=== PATIENT | male | born 1955 | race Caucasian/White ===

== ENCOUNTER 2022-09-20 08:26 | Emergency (ER) | payer BC, SELFPAY ==
[2022-09-20 08:28] VITALS: BP 151/95; PULSE 91; RESP 23; TEMP 36.9; O2SAT 100; BMI 32.5
--- NOTE | 2022-09-20 08:55 | ED.VIS.CHEST ---
HPI History of Present Illness Chief Complaint: Chest Pain Informant: patient Onset/Context/Timing Onset: Today Activity at onset: gradual Timing: Intermittent and Lasts (Approximately 5 to 10 minutes) Quality: Positive for Tightness Location: Substernal, Right Parasternal and Left Parasternal Worsened By: Nothing Relieved By: Nothing Associated Symptoms: Positive for Diaphoresis, Cough and Lightheadedness; Negative for Nausea, Vomiting, Dyspnea, Fever, Acid Reflux or Palpitations Narrative Narrative: Patient presents with chest pain that began today. Patient states it came on gradually this morning. Patient states it last for proxy 5 to 10 minutes. Patient describes it as a tightness. Patient states it is over the substernal and bilateral parasternal areas. Patient admits to some radiation into his neck. Patient states nothing makes it better nothing makes it worse. Patient states he did break out into a sweat when it began. Patient states he also felt lightheaded and weak in his legs. Patient states he has had a recent cough. Patient denies any sputum production. Patient denies any shortness of breath or fevers. Patient denies any nausea or vomiting. Patient denies any palpitations. Patient denies any cardiac or PE risk factors. CVD Risk Factors: Negative for Hypertension, Diabetes, Hypercholesterolemia, Family History 1' </=55 or Smoking PE Risk Factors: Negative for Recent Travel/Surgery, Recent Immobilization, Prior DVT or PE, Cancer or OCP + Smoking + >/=35 PFSH PFSH Medical History (Updated 09/20/22 @ 13:[address] Gregg Sultana DO) Psoriasis Medical History no medical history Allergy/AdvReac Type Severity Reaction Status Date / Time Penicillins [PCN] Allergy Rash Verified 09/20/22 08:27 Surgical History (Updated 09/20/22 @ 09:[address] Gregg Sultana DO) History of total replacement of right hip Social History (Updated 09/20/22 @ 09:[address] Gregg Sultana DO) Smoking Status: Never smoker alcohol intake: current alcohol intake frequency: 0-2 drinks per day Alcohol type: beer substance use type: does not use ROS ROS ED Constitutional Constitutional ED: Reports sweats; Denies chills or fever(s) Eyes Eyes: Denies blurry vision or change in vision ENT ENT ED: Denies rhinorrhea or sore throat Cardiovascular Cardiovascular: Reports chest pain; Denies palpitations Respiratory/Chest Respiratory/Chest: Reports cough; Denies dyspnea Gastrointestinal Gastrointestinal: Denies abdominal pain, nausea or vomiting Genitourinary Genitourinary ED: Denies dysuria or hematuria Musculoskeletal Musculoskeletal: Reports neck pain; Denies back pain Integumentary Reports rash; Denies abscess Neurologic Neurologic: Denies headache(s) or weakness Allergic/Immunologic Allergic/Immunologic ED: Denies mouth swelling or urticaria EXAM Physical Exam Const Vital Signs: 09/20/22 08:28 09/20/22 09:08 09/20/22 10:20 Temperature 98.4 F Temperature Source Oral Pulse Rate 91 Respiratory Rate 23 H Blood Pressure 151/95 H 160/93 H Blood Pressure Mean 113 115 Pulse Ox 100 97 Oxygen Delivery Method Room Air Room Air Room Air 09/20/22 12:44 Temperature Temperature Source Pulse Rate Respiratory Rate Blood Pressure 131/76 H Blood Pressure Mean 94 Pulse Ox Oxygen Delivery Method Positive well nourished, well developed and obese General Appearance ED: well developed and NAD Nutritional Appearance: obese HEENT normocephalic and atraumatic Eyes PERRL and EOMs intact bilaterally Neck supple and no JVD Chest Wall palpation of chest normal Resp normal respiratory effort and clear to auscultation bilaterally Effort and Inspection: Negative for respiratory distress Cardio regular rate and regular rhythm GI normal to inspection, nondistended, normoactive bowel sounds, soft to palpation, non-tender and non-distended Extremity normal to inspection General Extremety ED: Negative for edema or tenderness General Extremity: Negative for edema Neuro oriented x3, CN's II-XII intact bilaterally and no sensory deficits noted Sensorium / Orientation: awake and alert Motor Exam: strength 5/5 throughout Psych mental status grossly normal Heart Score History: Slightly/Non-Suspicious ECG: Normal Age: >45 - <65 years Risk Factors: No Risk Factors Score: 1 MDM MDM MDM Narrative Medical decision making narrative: Patient was given aspirin here. EKG was obtained. On my interpretation, it showed a normal sinus rhythm with a rate of 88. NV interval, QRS interval, and QTc intervals were all normal. [place] was normal. There are no acute ST or T wave changes. CBC was obtained and was reviewed. This was within normal limits. D-dimer was obtained and was reviewed and was within normal limits. Basic metabolic profile was obtained and was reviewed. Glucose was slightly elevated at 148. The remainder was within normal limits. High-sensitivity troponin was obtained and was reviewed. This is normal at 4. PA and lateral chest x-ray was obtained. There are 2 views. On my independent interpretation, lung kennedy are clear. There is normal cardiac silhouette. Bony thorax is normal. There is no acute process noted. Radiologist also interpreted the x-ray and agrees. 2-hour repeat high-sensitivity troponin was obtained and was reviewed. This was also normal at 4. Patient was advised of his findings. Patient was instructed to follow-up with his primary care physician in 5 to 7 days. Patient and spouse understood and were agreeable with plan. All questions were answered. Lab Data Attestation: I reviewed the patient's lab results. Labs: Laboratory Results - last 24 hr 09/20/22 09/20/22 09/20/22 08:17 08:17 08:17 WBC 7.4 RBC 5.07 Hgb 15.0 Hct 44.9 MCV 88.6 MCH 29.6 MCHC 33.4 RDW Std Deviation 41.9 RDW Coeff of Jorge 12.9 Plt Count 246 MPV 11.5 Immature Gran % (Auto) 0.400 Neut % (Auto) 56.8 Lymph % (Auto) 31.2 [place] % (Auto) 10.1 H Eos % (Auto) 0.8 Baso % (Auto) 0.7 Absolute Neuts (auto) 4.2 Absolute Lymphs (auto) 2.31 Nucleated RBC % 0 D-Dimer Quant (PE/DVT) 0.30 Sodium 137 Potassium 3.8 Chloride 104 Carbon Dioxide 25.0 Anion Gap 8 BUN 13 Creatinine 0.97 Estim Creat Clear Calc 69.43 Est GFR (MDRD) Af Amer 100 Est GFR (MDRD) Non-Af 83 BUN/Creatinine Ratio 13.4 Glucose 148 H Calcium 9.1 Troponin I High Sens 4 09/20/22 11:45 WBC RBC Hgb Hct MCV MCH MCHC RDW Std Deviation RDW Coeff of Jorge Plt Count MPV Immature Gran % (Auto) Neut % (Auto) Lymph % (Auto) [place] % (Auto) Eos % (Auto) Baso % (Auto) Absolute Neuts (auto) Absolute Lymphs (auto) Nucleated RBC % D-Dimer Quant (PE/DVT) Sodium Potassium Chloride Carbon Dioxide Anion Gap BUN Creatinine Estim Creat Clear Calc Est GFR (MDRD) Af Amer Est GFR (MDRD) Non-Af BUN/Creatinine Ratio Glucose Calcium Troponin I High Sens 4 Radiography Diagnostic Testing: Clinical Impression(s) from Imaging Studies Chest X-Ray 09/20/22 09:03 IMPRESSION: Hyperinflation. The lungs are clear. Electronically Signed: Navi Elias MD at 10:35 EST , EKG Initial EKG: Attestation: I personally reviewed and interpreted this EKG as follows: Interpretation: Sinus Rhythm (88) and No Acute Injury Pattern Prior EKG tracings: not available for review Prior: No Prior Discharge Plan Triage Chief Complaint: Chest Pain ED Provider: Gregg Sultana Dx/Rx/DC Orders Clinical Impression: Chest pain of uncertain etiology, Elevated blood pressure reading Instructions: ED Chest Pain, Uncertain Cause Primary Care Provider: Eric Hall Referrals: Eric Hall MD [Primary Care Provider] - 5-7 Days Disposition Disposition: Home, Self Care
--- NOTE | 2022-09-20 09:03 | RAD_ITS ---
STUDY: X-RAY CHEST REASON FOR EXAM: Male, 66 years old. Chest pain and chest pressure. TECHNIQUE: PA and lateral views of the chest. COMPARISON: None. FINDINGS: EKG electrodes are seen. Hyperinflation. The lungs are clear. There is no demonstrated pleural abnormality. Normal size heart. Normal mediastinum and aurelio. Normal visualized pulmonary arteries. There is atherosclerotic tortuosity of the aortic arch and descending thoracic aorta. There are degenerative changes of the visualized thoracic spine. Normal visualized ribs, clavicles, and shoulders. There is no demonstrated abnormality of the visualized soft tissue structures of the upper abdomen. RAD/Chest PA and Lateral IMPRESSION: Hyperinflation. The lungs are clear. Electronically Signed: Navi Elias MD at 10:35 EST ,
--- NOTE | 2022-09-20 09:03 | EKG12_ITS ---
Test Reason : CP Blood Pressure : / mmHG Vent. Rate : 088 BPM Atrial Rate : 088 BPM P-R Int : 176 ms QRS Dur : 100 ms QT Int : 386 ms P-R-T Axes : 040 -08 016 degrees QTc Int : 467 ms Normal sinus rhythm Normal ECG When compared with ECG of 14-SEP-2012 11:42, Vent. rate has increased BY 29 BPM QT has lengthened Confirmed by EDUARD MARCELO, JEANETH ([id number]), editor house organ ORD MULLER ([id number]) on 09/22/2022 2:03:53 PM Referred By: ADI Confirmed By:THOMPSON CHAPA MD
[2022-09-20] MEDS: Aspirin 81 MG TAB.CHEW 324 MG PO (09:26)
[2022-09-20 09:44] LABS: Absolute Lymphocyte Count 2.31 X10^3/uL (0.83-4.51); Absolute Neutrophil Count 4.2 X10^3/uL (2.0-7.7); Basophil# 0.05 X10^3/uL; Basophil% 0.7 % (0-1); Eosinophil# 0.06 X10^3/uL; Eosinophils% 0.8 % (0-5); Hematocrit 44.9 % (40-54); Lymphocyte # 2.31 X10^3/ul (0.83-4.51); Lymphocyte % 31.2 % (19-41); Mean Corp Hgb Conc 33.4 g/dL (32-36); Mean Corpuscular Hgb 29.6 pg (27.0-32.0); Mean Corpuscular Volume 88.6 fL (80-94); Mean Platelet Vol. 11.5 fl (6.2-12.0); Monocyte# 0.75 X10^3/uL; Monocyte% 10.1 % (0-10); NRBC Flagged by Analyzer 0 % (0-5); Neutrophil # 4.21 X10^3/uL (2.7-7.7); Neutrophil % 56.8 % (47-70); Platelet Count 246 K/mm3 (150-450); RBC Distribution Width CV 12.9 % (11.6-14.6); RBC Distribution Width SD 41.9 fl (35.1-43.9); Red Blood Count 5.07 M/mm3 (4.6-6.2); White Blood Count 7.4 K/mm3 (4.4-11.0)
[2022-09-20 09:52] LABS: Anion Gap 8 (5-15); BUN 13 mg/dL (7-18); BUN/Creat Ratio 13.4 RATIO (10-20); Calcium,Total 9.1 mg/dL (8.5-10.1); Chloride 104 mmol/L (98-107); Creatinine, Serum 0.97 mg/dL (0.70-1.30); EST Glomerular Filtration Rate 83 mL/min (>60); Est Glom Filt Rate - Afr Amer 100 mL/min (>60); Estimated Creatinine Clearance 69.43 ml/min; Glucose 148 mg/dL (74-106); Potassium 3.8 mmol/L (3.5-5.1); Sodium Level 137 mmol/L (136-145); Troponin-I HS (w/2H Reflex) 4 pg/mL (3.0-78.0)
[2022-09-20 10:20] VITALS: BP 160/93; O2SAT 97
[2022-09-20 11:32] LABS: Reflex Troponin-HS? (from REC) Y
[2022-09-20 12:16] LABS: Troponin-I HS 4 pg/mL (3.0-78.0)
[2022-09-20 12:44] VITALS: BP 131/76
[2022-09-20 13:26] VITALS: BP 127/74; PULSE 70; RESP 15; O2SAT 98
== END 2022-09-20 13:31 | disposition home or self-care (01) ==
PROVIDERS: Emergency Provider Emergency Medicine; PCP Family Medicine; Visit Provider Emergency Medicine
DX: R07.9 Chest pain, unspecified (principal); R03.0 Elevated blood-pressure reading, without diagnosis of hypertension; E66.9 Obesity, unspecified
CPT/HCPCS: 71046; 80048; 84484; 85025; 85379; 93005; 99285; A4216

== ENCOUNTER → 2024-05-23 | Outpatient (CLI) | payer MEDICARE, SELFPAY ==
--- NOTE | 2024-05-23 16:50 | RAD_ITS ---
INDICATION: cyst -- left middle finger EXAMINATION/TECHNIQUE: X-RAY - LEFT HAND XR Fingers Min 2 Views COMPARISON: None. FINDINGS: SOFT TISSUES: Focal soft tissue swelling dorsal to the distal interphalangeal joint of the third finger. No radiopaque foreign body. BONES/JOINTS: No fracture or dislocation. Mild degenerative changes at the distal interphalangeal joint. No erosive changes. RAD/Finger(s) Min 2 Views IMPRESSION: Focal soft tissue swelling dorsal to the distal interphalangeal joint of the third finger with no osseous abnormality. Electronically Signed: Trung Maldonado DO at 23:02 EDT ,
== END | disposition home or self-care (01) ==
LOC: RAD 16:48
PROVIDERS: PCP Family Medicine; Referring Provider Surgery Plastic and Reconstructive Surgery; Visit Provider Surgery Plastic and Reconstructive Surgery
DX: M67.442 Ganglion, left hand (principal)
CPT/HCPCS: 73140

== ENCOUNTER 2024-07-03 07:03 | Day surgery (SDC) | payer MEDICARE, SELFPAY ==
[2024-07-03] VITALS (8 sets, daily range): BP systolic 96–126; BP diastolic 73–84; PULSE 57–86; RESP 16–18; TEMP 36.3–36.6; O2SAT 96–100; BMI 29.8
--- NOTE | 2024-07-03 07:41 | PRE.ANES_ITS ---
ASA Classification* ASA Classification ASA Classification: 2 (SEE WRITTEN PRE ANESTHESIA RECORD FOR FULL ASSESSMENT) Assessment & Plan Anesthesia* Anesthesia Assessment Anesthesia Assessment: Discussed sedation and/or anesthesia options, risks, benefits, and alternatives with patient/parents/legal guardian/POA. Questions invited. The patient/parents/legal guardian/POA seems to understand and agrees to proceed with anesthesia plan. Reviewed the physical assessment, medical history, allergy history and patient home medications list prior to surgery/procedure/anesthetic and documented any changes. Performed airway and anesthesia risk assessments. Anesthesia Type Anesthesia Type: MAC (SEE WRITTEN PRE ANESTHESIA RECORD FOR FULL ASSESSMENT) and Block (SEE WRITTEN PRE ANESTHESIA RECORD FOR FULL ASSESSMENT) Anesthesia Focused Assessment* Temperature: 97.8 F Pulse Rate: 57 Blood Pressure: 125/78 Respiratory Rate: 16 Pulse Ox: 100 Airway Assessment Mouth opens: >3 cm Mallampati Score: II Focused Labs Anesthesia Preop lab: CBC WBC 7.4 K/mm3 (4.4-11.0) 09/20/22 08:17 RBC 5.07 M/mm3 (4.6-6.2) 09/20/22 08:17 Hgb 15.0 g/dL (13.0-16.5) 09/20/22 08:17 Hct 44.9 % (40-54) 09/20/22 08:17 Plt Count 246 K/mm3 (150-450) 09/20/22 08:17 CHEMISTRY Potassium 3.8 mmol/L (3.5-5.1) 09/20/22 08:17 Sodium 137 mmol/L (136-145) 09/20/22 08:17 BUN 13 mg/dL (7-18) 09/20/22 08:17 Creatinine 0.97 mg/dL (0.70-1.30) 09/20/22 08:17 Glucose 148 mg/dL (74-106) H 09/20/22 08:17 COAG Pre-Assessment Diagnosis/Proposed Procedure Planned Operative Procedure(s): MUCOUS CYST EXCISION LEFT LONG FINGER Anesthesia History 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 When Was Last Pacemaker Check QUESTION #4 FULL TEXT: You/Your Family Experience fever (hyperthermia) with Anesthesia Last Oral Intake Last Oral intake: Last Oral Intake NPO since 06:00 07/03/24 07:24 Meds taken in AM with sips of Yes 07/03/24 07:24 water? Meds patient instructed to SEE MAR 07/03/24 07:24 take am of surgery PONV PONV - senior materials scientist: PONV - senior materials scientist Female No 06/12/24 14:48 HX of Motion Sickness No 06/12/24 14:48 HX of N/V After Surgery No 06/12/24 14:48 Non-Smoker Yes 06/12/24 14:48 Duration of Surgery greater No 06/12/24 14:48 than 60 minutes Number of Risk Factors 1 06/12/24 14:48 PONV Score Low Risk 06/12/24 14:48 Height & Weight Height & Weight: Anesthesia: Height & Weight Height 5 ft 6 in 07/03/24 07:24 Weight: 83.915 kg 07/03/24 07:24 Body Mass Index (BMI) 29.8 07/03/24 07:24 Respiratory Assessment Respiratory Assessment - senior materials scientist: Respiratory Tract Infection Hx - senior materials scientist Hx Respiratory Tract Infection No 06/12/24 14:48 STOP Sleep Apnea STOP Sleep Apnea - senior materials scientist: STOP Sleep Apnea - senior materials scientist Hx Hypertension Yes: CONTROLLED WITH MED 06/12/24 14:48 Hx Sleep Apnea No 06/12/24 14:48 CPAP BIPAP Do you snore loudly (louder Yes 06/12/24 14:48 than talking or can be heard Do you often feel tired/ No 06/12/24 14:48 fatigued/ sleepy during daytime? Has anyone observed you stop No 06/12/24 14:48 breathing during sleep? STOP Results Positive 06/12/24 14:48 QUESTION #5 FULL TEXT : Do you snore loudly (louder than talking or can be heard through closed doors)? 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 Specify any problems Hx of Preganancy in last 3 N/A 06/12/24 14:48 Months Nurse Filling Out Transfusion DSCHRIBER 06/12/24 14:48 & Questions: Date: 06/12/24 06/12/24 14:48 Time: 14:49 06/12/24 14:48 Patient unable to answer at this time (ie. confused, unrespo /Reproduction History /Reproductive History - senior materials scientist: /Reproductive Hx- senior materials scientist Hx Now No 06/12/24 14:48 Gestational Age (in weeks): EDC: Hx Hx Para Hx Section SAB No 06/12/24 14:48 Active Medications Active Medications: Current Medications Generic Name Dose Route Start Last Admin Trade Name Freq PRN Reason Stop Dose Admin Clindamycin Phosphate 900 mg in 50 mls @ 75 mls/hr 07/03/24 08:50 Cleocin IV 07/03/24 09:29 PREOP ONE PFS Medical History Wears glasses Depression Anxiety Alcohol use Arthritis Non-smoker History of echocardiogram History of stress test HTN (hypertension) Skin cancer, basal cell Elevated triglycerides with high cholesterol History of DVT (deep vein thrombosis) Home Medications ?Medication ?Instructions ?Recorded ?Last Taken ?Type amlodipine 5 mg tablet 5 mg PO QDAY 05/23/24 07/03/24 05:30 History apremilast 30 mg tablet (Otezla) 30 mg PO DAILY 05/23/24 Unknown History aspirin 81 mg chewable tablet 81 mg PO QDAY 05/23/24 06/26/24 History clobetasol 0.05 % topical cream 1 applic topical QDAY 05/23/24 Unknown History ketoconazole 2 % topical foam 1 applic topical BID PRN SKIN 05/23/24 Unknown History montelukast 10 mg tablet 10 mg PO QDAY 05/23/24 Unknown History triamcinolone acetonide 0.1 % 1 applic topical QDAY PRN SKIN 05/23/24 Unknown History topical cream Allergy/AdvReac Type Severity Reaction Status Date / Time Penicillins (PCN) Allergy Rash Verified 07/03/24 07:23 Family History Sister Bleeding disorder CVA (cerebral vascular accident) Brother Bleeding disorder Cancer Mother Hypertension Other Kidney disease Surgical History Hx of hand surgery History of total replacement of right hip Social History Smoking Status: Never smoker alcohol intake: current alcohol intake frequency: 0-2 drinks per day Alcohol type: beer substance use type: does not use Review of Systems (Anesthesia) ROS Narrative System reviewed and no additional complaints, except as documented.
--- NOTE | 2024-07-03 08:17 | PCM.HP.STD ---
HPI - General HPI Narrative Current Encounter (DATE OF SURGERY H&P UPDATE): I saw and examined the patient this morning in pre-operative holding. We discussed risks and benefits of today's surgery and they would like to proceed. NO CHANGE in health history since last seen and evaluated. Ready to proceed with surgery. [facility] Medical History Wears glasses Depression Anxiety Alcohol use Arthritis Non-smoker History of echocardiogram History of stress test HTN (hypertension) Skin cancer, basal cell Elevated triglycerides with high cholesterol History of DVT (deep vein thrombosis) Home Medications ?Medication ?Instructions ?Recorded ?Last Taken ?Type amlodipine 5 mg tablet 5 mg PO QDAY 05/23/24 07/03/24 05:30 History apremilast 30 mg tablet (Otezla) 30 mg PO DAILY 05/23/24 Unknown History aspirin 81 mg chewable tablet 81 mg PO QDAY 05/23/24 06/26/24 History clobetasol 0.05 % topical cream 1 applic topical QDAY 05/23/24 Unknown History ketoconazole 2 % topical foam 1 applic topical BID PRN SKIN 05/23/24 Unknown History montelukast 10 mg tablet 10 mg PO QDAY 05/23/24 Unknown History triamcinolone acetonide 0.1 % 1 applic topical QDAY PRN SKIN 05/23/24 Unknown History topical cream doxycycline hyclate 150 mg tablet 150 mg PO BID 7 days #14 tabs 07/03/24 Unknown Rx oxycodone 5 mg tablet 5 mg PO DAILY PRN pain 5 days #5 07/03/24 Unknown Rx tabs Allergy/AdvReac Type Severity Reaction Status Date / Time Penicillins (PCN) Allergy Rash Verified 07/03/24 07:23 Family History Sister Bleeding disorder CVA (cerebral vascular accident) Brother Bleeding disorder Cancer Mother Hypertension Other Kidney disease Surgical History Hx of hand surgery History of total replacement of right hip Social History Smoking Status: Never smoker alcohol intake: current alcohol intake frequency: 0-2 drinks per day Alcohol type: beer substance use type: does not use Vital Signs Vital Signs Vital Signs: 07/03/24 07:24 07/03/24 07:41 Temperature 97.8 F 97.8 F Temperature Source Temporal Pulse Rate 57 L 57 L Respiratory Rate 16 16 Blood Pressure 125/78 H 125/78 H Blood Pressure Mean 93 Blood Pressure Source Monitor Blood Pressure Position Semi-Fowlers Blood Pressure Location Left Arm Pulse Ox 100 100 Oxygen Delivery Method Room Air Weight Weight: 185 lb Body Mass Index (BMI) 29.8 Physical Exam Narrative Mucous cyst on the left long finger on the dorsal side of the DIP joint. Some heberden's nodules on the other DIP joints. No mallet deformity Assessment & Plan Assessment/Plan (1) Mucous cyst of digit of left hand: PLAN: Plan INTERVAL H&P PLAN, DATE OF SURGERY: We will proceed with surgery today. I further discussed options today in clinic. We talked about removal of cyst via debridement of osteophyte material and the stalk via exposure of the joint dorsally, followed by involution of the cyst skin and healing over time (not removing the skin/cyst component). This might not be the best option because the cyst is directly over the joint, and the skin of the cyst if quite thin. He understands and agrees with proceeding via excision directly of the cyst with exposure/debridement of stalk/osteophytes from DIP joint, followed by rotation flap reconstruction. I talked the patient extensively about the risks of surgery, including bleeding, infection, damage to surrounding structures, surgical site dehiscence and wound formation, need for wound care, need for repeat operations, failure to obtain the desired result, DVT/PE, and the risks of anesthesia including . The benefits and alternatives of this surgery were also discussed. All of their questions were answered, and they agreed to proceed with surgery. All questions answered. I reiterated especially risks of DIP joint instability and mallet finger post-op, as well as infections and wound healing issues. I talked to him about extension splinting post-operatively. I spoke to him about rotation flap for closure of the wound s/p cyst removal (understands planned dorsal finger incisions). I marked the digit in preop holding and patient was in agreement.
--- NOTE | 2024-07-03 08:50 | CYST_PTH ---
PATIENT: EDILIA KHALIL LOC: [facility] [place] U#:[id number] AGE/SX: 68/M ROOM: RE07/03/[address]: Dr. Bhupinder Blanton MD : 1955 BED: DIS: 07/03/2024 SPEC #: [id number] RECD: 07/03/24 14:52 STATUS: JO STEELCarlos Manuel #: [id number] CLAUDETTE: 07/03/24 08:[address]: Bhupinder Blanton DEPT: SURGICAL PATHOLOGY RECD BY: Jenny Chaudhary ENTERED: 07/04/24 07:33 SP TYPE: Cyst OTHR DR: TRAM LAGUNAS Tissues: CYST Procedures: Surgery Specimen Level III HEADER OPERATION: Mucous cyst excision left long finger PRE-OP DIAGNOSIS: Mucous cyst left long finger TISSUE SUBMITTED: Mucous cyst left long finger MICROSCOPIC DIAGNOSIS Left long finger, mucous cyst, excision: Consistent with ganglion cyst. See brenda. 07/05/2024 COMMENT Skin piece also shows extensive hyperkeratosis. MICROSCOPIC DESCRIPTION Slides are reviewed. GROSS DESCRIPTION Received in fixative is one container labeled with the patient's name and designated Mucous cyst left long finger. The specimen consists of a piece of fofana-white skin measuring 1.0 x 0.4 x 0.1cm. No obvious cyst is noted. The specimen is serially sectioned and submitted entirely in one cassette. 07/04/2024 TC:5 CPT:[id number]
--- NOTE | 2024-07-03 09:55 | PCM.POST.ANE ---
Anesthesia: Postop Eval I Current Vital Signs Temperature: 97 F Pulse Rate: 79 Blood Pressure: 147/89 Respiratory Rate: 18 Pulse Ox: 93 Assessment Airway patent: Yes Spontaneous unlabored respirations: Yes nausea: No Vomiting: No Anesthesia Complication: No Fluid Hydration Crystalloid volume administer (ml): 30 Total IV fluid infused: 30 Progress Note Anesthesia document: Postop Eval 1 completed: Yes
[2024-07-03] MEDS: Clindamycin 900 MG/50 ML BAG 75 MG IV (10:15)
[2024-07-03] MEDS: Lidocaine 0.5% (50 ml) 50 ML Vial (10:25)
[2024-07-03] MEDS: Lidocaine 1% (20 ml mdv) 20 ML Vial (10:56)
[2024-07-03] MEDS: Bupivacaine 0.25% 30 ML Vial ×2 (10:56→11:02)
--- NOTE | 2024-07-03 11:05 | PCM.POST.ANE ---
Anesthesia: Postop Eval I Current Vital Signs Temperature: 97.3 F Pulse Rate: 62 Blood Pressure: 96/73 Respiratory Rate: 18 Pulse Ox: 96 Assessment Airway patent: Yes Spontaneous unlabored respirations: Yes nausea: No Vomiting: No Anesthesia Complication: No Fluid Hydration Crystalloid volume administer (ml): 10 Total IV fluid infused: 10 Progress Note Post-operative progress note: Disregard [id number] post op anesthesia evaluation. Anesthesia document: Postop Eval 1 completed: Yes
--- NOTE | 2024-07-03 11:22 | POSTOPAN2_ITS ---
Anesthesia Postop Eval I Sum Postop Eval Completion status Anesthesia document: Postop Eval 1 completed: Yes Anesthesia Postop Eval I Summary Anesthesia Postop Eval I Summary: Anesthesia Postop Eval I: Assessment Summary Airway patent Yes 07/03/24 11:06 AGRICULTURAL PLOW OPERATOR.CSIR Spontaneous unlabored Yes 07/03/24 11:06 AGRICULTURAL PLOW OPERATOR.CSIR respirations Mental status nausea No 07/03/24 11:06 AGRICULTURAL PLOW OPERATOR.CSIR Vomiting No 07/03/24 11:06 AGRICULTURAL PLOW OPERATOR.CSIR Anesthesia Postop Eval I: Fluid Summary Crystalloid volume administer 10 07/03/24 11:06 AGRICULTURAL PLOW OPERATOR.CSIR (ml) Colloids volume administered ( ml) Blood Product volume administered (ml) Total IV fluid infused 10 07/03/24 11:06 AGRICULTURAL PLOW OPERATOR.CSIR Anesthesia Postop Eval I: Summary Notes Anesthesia Complication No 07/03/24 11:06 AGRICULTURAL PLOW OPERATOR.CSIR Anesthesia Complication Comment: Post-operative progress note Disregard [id number] 07/03/24 11:06 AGRICULTURAL PLOW OPERATOR.CSIR post op anesthesia evaluation. Anesthesia: Postop Eval II Evaluation Mental status: Awake Pain Level: 0 nausea: No Vomiting: No
--- NOTE | 2024-07-03 11:22 | PCM.POSTANE2 ---
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 Spontaneous unlabored Yes 07/03/24 11:06 FULFILLMENT MAIL [email or web address] respirations Mental status nausea No 07/03/24 11:06 FULFILLMENT MAIL CLERK.CSIR Vomiting No 07/03/24 11:06 FULFILLMENT MAIL [email or web address] Anesthesia Postop Eval I: Fluid Summary Crystalloid volume administer 10 07/03/24 11:06 FULFILLMENT MAIL [email or web address] (ml) Colloids volume administered ( ml) Blood Product volume administered (ml) Total IV fluid infused 10 07/03/24 11:06 FULFILLMENT MAIL CLERK.CSIR Anesthesia Postop Eval I: Summary Notes Anesthesia Complication No 07/03/24 11:06 FULFILLMENT MAIL [email or web address] Anesthesia Complication Comment: Post-operative progress note Disregard [id number] 07/03/24 11:06 FULFILLMENT MAIL [email or web address] post op anesthesia evaluation. Anesthesia: Postop Eval II Evaluation Mental status: Awake Pain Level: 0 nausea: No Vomiting: No
--- NOTE | 2024-07-03 12:10 | OP.PCM_ITS ---
Operative Report (Standard) Operative Information Surgery/Procedure Performed: 1) Excision of left long finger mucous cyst (01470) 2) Simple closure left long finger wound, 1.5 cm (81179) Surgeon: Bhupinder Blanton Date of Procedure: 07/03/24 Procedure Start Time: 10:15 Procedure Stop Time: 10:56 Pre-Operative Diagnosis: Mucous cyst left long finger Post-Operative Diagnosis: Same Select all DRAINS/GRAFTS/IMPLANTS that apply: None Type of Anesthesia: Block,[place] (with local block using 0.25% marcaine 5 cc for digital block ) Estimated Blood Loss: minimal Specimen collected: Yes Description of specimen(s) removed: cyst Description of surgery: INDICATIONS: Kenny Haeys Is a delightful 68-year-old male with history of a mucous cyst on the left long finger over the distal interphalangeal joint. Presents today for excision of the cyst. I talked the patient extensively about the risks of surgery, including bleeding, infection (especially of the DIP joint), damage to surrounding structures (including mallet deformity), surgical site dehiscence and wound formation, need for wound care, need for repeat operations, failure to obtain the desired result (return of the cyst), and the risks of anesthesia. All of their questions were answered, and they agreed to proceed with surgery. OPERATIVE DETAILS: Patient was correctly identified in preoperative holding and the correct mucous cyst and digit were marked with the patient in agreement. They were taken back to the operating room where they are administered Anival block and sedation for anesthesia (tourniquet on the arm for 20 minutes). They were prepped and draped in sterile fashion. All proper timeouts were performed. We began the procedure by excising the cyst circumferentially over the terminal slip of the extensor. The portions of the cyst that were removed with regards to the skin were just the areas of thinned out skin with a bluish tinge. The other skin that was tented up was saved for closure. Dissection was then carefully carried out with a 15 blade scalpel around the cyst and the stalk was followed down to the terminal slip where the cyst stalk was coming from. The cyst stalk was excised with bipolar electrocautery and the cyst was sent to pathology (cyst was 1 x 1 cm). Attention was then turned to the osteophytic material adjacent to the terminal slip, and the area was entered with a 15 blade scalpel dorsal to the collateral ligaments and the osteophytes were debrided with a curette adjacent to above and slightly below the terminal slip. Bipolar electrocautery was then used as the tourniquet was let down. A 5 cc digital block with 0.25% Marcaine was was then performed. A simple closure of 1.5 cm was then performed with horizontal mattress 4-0 nylon sutures. Xeroform, Anand, AlumaFoam and Coban was then applied to splint the DIP joint in extension. POST-OPERATIVE PLAN: Follow-up on Monday, 05 Jul 2024. The patient can the dressings until then (Xeroform daily, Anand, and AlumaFoam and Coban). They were encouraged to move the PIP joint and immobilize DIP joint in extension for 1 week. They are not to use this finger, and they are not to use the hand for lifting. Surgical Findings: Mucous cyst with stalk coming from the terminal slip of the extensor tendon. 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
== END 2024-07-03 12:01 | disposition home or self-care (01) ==
LOC: SDC 07:04 → AC 07:04
PROVIDERS: PCP Nurse Practitioner Adult Health; Referring Provider Surgery Plastic and Reconstructive Surgery; Visit Provider Surgery Plastic and Reconstructive Surgery
PROC: (CPT 26055; principal; 2024-07-03 08:40)
DX: M71.342 Other bursal cyst, left hand (principal); M25.742 Osteophyte, left hand; L85.9 Epidermal thickening, unspecified; I10 Essential (primary) hypertension; E78.2 Mixed hyperlipidemia; Z79.899 Other long term (current) drug therapy; M67.844 Other specified disorders of tendon, left hand
CPT/HCPCS: 26160; 26210; 01810; 88304; A4216; J2405